=== PATIENT | female | born 1990 | race Caucasian/White ===

== ENCOUNTER 2017-06-07 22:50 | Outpatient (CLI) | payer BC ==
[2017-06-07 23:14] VITALS: BP 108/70; PULSE 79; RESP 16; TEMP 97.9
--- NOTE | 2017-06-23 07:43 | P.MSEPDOC ---
Presenting Problems - Arrival Data Date of Arrival on Unit: 06/07/17 Time of Arrival on Unit: 22:50 Mode of Transport: Wheelchair - Complaint OB-Reason for Admission/Chief Complaint: Possible Onset of Labor Comment: strong contx since 6pm Medical History - Information : 4 Para: 2 Term: 2 : 0 Abortions: Spontaneous or Elective: 1 Number of Living Children: 2 - Gestational Age Expected Date of Delivery: 06/28/17 Gestational Age by SOTO (wks/days): 39 Weeks and 2 Days - History Sexually Transmitted Diseases: HSV Review of Systems - Review of Systems Constitutional: No problems Breast: No problems ENT: No problems Cardiovascular: No problems Respiratory: No problems Gastrointestinal: No problems Genitourinary: No problems Musculoskeletal: No problems Neurological: No problems Skin: No problems Vital Signs - Temperature Temperature: 97.9 F Temperature Source: Oral - Pulse Right Sitting Brachial Pulse Rate: 79 Pulse Assessment Method: Automatic Cuff - Respirations Respiratory Rate: 16 Oxygen Delivery Method: Room Air - Blood Pressure Right Arm Sitting Blood Pressure: 108/70 Blood Pressure Mean: 82 Blood Pressure Source: Automatic Cuff Medical Screen Scoring (Pre) - Cervical Exam Dilation: 1-3 cm = 1 Membranes: Intact - Uterine Contractions Frequency: > or = 36 weeks =2 Duration: > 40 seconds = 2 - Maternal Vital Signs Maternal Temperature: N/A Maternal Blood Pressure: N/A Signs of Preeclampsia: N/A Maternal Respirations: N/A - Maternal Trauma Maternal Trauma: N/A - Assessment Heart Rate - NICHD Category: Category I (Normal) = 0 - Total Score Total Score (Pre): 5 - Level of Risk Level of Risk: Low (0-5) Physician Notification (Pre) - Physician Notified Physician Notified Date: 06/07/17 Physician Notified Time: 23:08 Physician/Practitioner Notifed:: dr fallon Spoke With: dr fallon New Order Received: Yes - Notification Comment Comment: dr fallon ordered to recheck cervix after one hour and if no cervical change and FHTs reactive, pt may be discharged home. Disposition - Disposition OB Disposition: Discharge to home Discharge Date: 06/08/17 Discharge Time: 00:10 I agree with the RN Medical Screening Exam: Yes Risk & Benefit of care provided described in d/c instruction: Yes Diagnosis: ECHO VIRUS MENINGITIS
== END 2017-06-08 00:10 | disposition home or self-care (01) ==
LOC: FBPOP 22:50
PROVIDERS: ATTEND Obstetrics & Gynecology
DX: O98.52 Other viral diseases complicating childbirth (principal); A87.0 Enteroviral meningitis; Z3A.39 39 weeks gestation of pregnancy
CPT/HCPCS: 59025; 99213

== ENCOUNTER 2017-06-14 09:03 | Inpatient (IN) | payer BC, OTHER ==
[2017-06-14] MEDS ORDERED: TERBUTALINE 1 MG/ML VIAL SQ PRN (09:32)
[2017-06-14] MEDS ORDERED: METHYLERGONOVINE 0.2 MG/ML 1 ML AMP IM PRN (09:32)
[2017-06-14] MEDS ORDERED: OXYTOCIN 10 UNIT/ML 1 ML VIAL IM PRN (09:32)
[2017-06-14] MEDS ORDERED: CARBOPROST TROMETHAMINE 250 MCG/ML 1 ML AMP IM PRN (09:32)
[2017-06-14] MEDS ORDERED: LIDOCAINE 1% (PF) 10 MG/ML (30 ML SDV) SQ PRN (09:32)
[2017-06-14] MEDS ORDERED: OXYTOCIN 20 UNITS/1000 ML NS 1,000 ML IV SCH ×2 (09:45→13:15)
[2017-06-14] MEDS: LACTATED RINGERS 1,000 ML IV SCH ×2 (09:47→12:44)
[2017-06-14 09:53] VITALS: RESP 16; BMI 31.4
[2017-06-14 09:58] LABS: Basophils % (A) 0 %; CH 31.5; CHCM 34.4; Eosinophils % (A) 0 %; HCT 43.3 % (34.0-46.0); HDW 2.81; HGB 14.3 gm/dL (11.4-16.0); Luc # (Auto) 0.09; Luc % (Auto) 1; Lymphocytes # (A) 1.3 k/uL (1.0-4.8); Lymphocytes % (A) 14 %; MCH 30.4 pg (25.0-35.0); MCV 91.9 fL (80.0-100.0); Monocytes # (A) 0.3 k/uL (0-1.0); Monocytes % (A) 3 %; Neutrophils # (A) 7.7 k/uL (1.3-7.7); Neutrophils % (A) 82 %; RBC 4.71 m/uL (3.80-5.40); RDW 14.5 % (11.5-15.5); WBC 9.5 k/uL (3.8-10.6); WBC (Perox) 8.88
[2017-06-14] MEDS ORDERED: fentaNYL (PF) 50 MCG/ML 5 ML AMP ONE (12:07)
[2017-06-14] MEDS ORDERED: SODIUM CHLORIDE 0.9% 100 ML BAG ONE (12:07)
[2017-06-14] MEDS ORDERED: BUPIVACAINE (PF) 0.25% 30 ML VIAL ONE (12:07)
[2017-06-14] MEDS ORDERED: BUPIVACAINE (PF) 0.25% 25 ML, fentaNYL (PF) 200 MCG in SODIUM CHLORIDE 0.9% 71 ML EPIDURAL ONE (12:43)
--- NOTE | 2017-06-14 13:01 | P.HPOB ---
History of Present Illness H&P Date: 06/14/17 Chief Complaint: Contractions Annmarie is a pleasant 27-year-old at 38 weeks, edc 06/28/2017, that presents with complaints of contractions she stated the contractions started earlier today and became regular every 2-3 minutes. She denies loss of fluid or vaginal bleeding. She notes good movement no blood work revealed a blood type of A+ she was rubella nonimmune and will receive a vaccine she is RPR nonreactive her hepatitis B surface Ag was negative along with her HIV Past Medical History Past Medical History: No Reported History Additional Past Medical History / Comment(s): IBS, HSV, anxiety, depression History of Any Multi-Drug Resistant Organisms: None Reported Past Surgical History: Cholecystectomy Additional Past Surgical History / Comment(s): Dilation and curettage Past Anesthesia/Blood Transfusion Reactions: Postoperative Nausea & Vomiting ( PONV) Past Psychological History: Anxiety, Depression Smoking Status: Never smoker Past Alcohol Use History: Occasional Past Drug Use History: None Reported - Past Family History Brother(s) Additional Family Medical History / Comment(s): CROHN'S Sister(s) Additional Family Medical History / Comment(s): COLITIS Mother Additional Family Medical History / Comment(s): DIVERTICULI Medications and Allergies Home Medications Medication Instructions Recorded Confirmed Type Pnv,Calcium 72/Iron/Folic Acid 1 tab PO DAILY 05/18/17 06/14/17 History [ Plus Tablet] Sertraline [Zoloft] 50 mg PO DAILY 06/07/17 06/14/17 History valACYclovir [Valtrex] 500 mg PO DAILY 06/07/17 06/14/17 History Allergies Allergy/AdvReac Type Severity Reaction Status Date / Time No Known Allergies Allergy Verified 06/14/17 09:11 Exam Osteopathic Statement: *. No significant issues noted on an osteopathic structural exam other than those noted in the History and Physical/Consult. - Vital Signs Vital signs: Vital Signs Temp Pulse Resp BP Pulse Ox 06/14/17 09:49 98.1 F 84 16 104/67 98 06/14/17 09:12 98.1 F 84 16 104/67 98 Intake and Output 06/13/17 06/14/17 06/14/17 22:59 06:59 14:59 Other: Weight 78.018 kg Patient Weight 06/15/17 06:59 Weight 78.018 kg - OBG Physical Exam Abdomen: Gravid and appropriate for gestational age Vulva: both: normal Cervix: Dilation per RN exam 5-6 cm on admission Uterus: Gravid Results Result Diagrams: 06/14/17 09:45 Assessment and Plan (1) Spontaneous onset of labor Status: Acute Plan: We will admit Linda with expectant management and plans for normal spontaneous vaginal delivery
[2017-06-14] MEDS ORDERED: diphenhydrAMINE 50 MG CAP PO PRN (13:05)
[2017-06-14] MEDS ORDERED: Acetaminophen-Codeine 300-30mg TAB PO PRN (13:05)
[2017-06-14] MEDS ORDERED: BENZOCAINE/MENTHOL SPRAY 1 GM/SPRAY AEROSOL TOPICAL PRN (13:05)
[2017-06-14] MEDS ORDERED: ACETAMINOPHEN TAB 325 MG TAB PO PRN (13:05)
[2017-06-14] MEDS ORDERED: LANOLIN CREAM 5 GM TUBE TOPICAL PRN (13:05)
[2017-06-14] MEDS ORDERED: SIMETHICONE 80 MG CHEWABLE PO PRN (13:05)
[2017-06-14] MEDS ORDERED: diphenhydrAMINE 50 MG/ML 1 ML VIAL IVP PRN ×2 (13:05)
[2017-06-14] MEDS ORDERED: WITCH HAZEL 1 EACH MED..PAD TOPICAL PRN (13:05)
[2017-06-14] MEDS ORDERED: MEASLES-MUMPS-RUBELLA VACC/PF 12,500 UNIT/0.5 ML VIAL SQ ONE (13:05)
[2017-06-14] MEDS ORDERED: ZOLPIDEM 5 MG TAB PO PRN (13:05)
[2017-06-14] MEDS ORDERED: HYDROCORTISONE 2.5% RECTAL CREAM 30 GM TUBE RECTAL PRN (13:05)
[2017-06-14] MEDS ORDERED: diphenhydrAMINE 25 MG CAP PO PRN (13:05)
--- NOTE | 2017-06-14 13:05 | P.PROBDLV ---
Vaginal Delivery Note - . Vaginal Delivery Note: Preoperative diagnosis intrauterine at 38-0/7 weeks, spontaneous labor Postoperative diagnosis same Procedure normal spontaneous vaginal delivery, artificial rupture of membranes , Pitocin augmentation of labor, repair of second-degree midline vaginal laceration Surgeon Rama Andrew D.OLeroy Anesthesia epidural, local with vaginal repair EBL 300 mL Findings male infant in OA presentation, delivered over intact perineum. At 1237, Apgars 9 and 9 at one and 5 minutes respectively. Placenta delivered spontaneously without difficulty intact Complications none
[2017-06-14] MEDS: IBUPROFEN 600 MG TAB PO PRN (13:19)
[2017-06-14] MEDS: SENNOSIDES-DOCUSATE SODIUM 1 EACH TAB PO SCH (20:34)
[2017-06-15] MEDS: IBUPROFEN 600 MG TAB PO PRN ×2 (01:39→08:50)
--- NOTE | 2017-06-15 08:14 | P.PNOBGVD ---
Subjective - Subjective Principal diagnosis: s/p Interval history: Tommy is a 27-year-old 012 that is status post normal spontaneous vaginal delivery on 06/14/2017. She is ambulatory and voiding without difficulty. She is tolerating a regular diet. She states her pain is controlled. Her lochia is moderate at this time. She denies any concerns Objective - Latest Vital Signs Latest vital signs: Vital Signs Temp Pulse Resp BP Pulse Ox 06/14/17 23:54 98.7 F 83 16 119/67 06/14/17 20:00 98.6 F 71 16 114/65 06/14/17 16:00 98.3 F 72 16 108/59 06/14/17 14:56 98.2 F 60 16 112/67 06/14/17 14:26 66 16 111/66 06/14/17 13:56 76 16 126/78 06/14/17 13:41 72 16 108/58 06/14/17 13:26 72 16 100/49 06/14/17 13:11 78 16 113/53 06/14/17 12:56 96.5 F L 97 16 123/60 06/14/17 09:49 98.1 F 84 16 104/67 98 06/14/17 09:12 98.1 F 84 16 104/67 98 Intake and Output 06/14/17 06/15/17 06/15/17 22:59 06:59 14:59 Other: # Voids 0 1 - Exam Extremities: Present: normal Abdomen: Present: normal appearance (Uterus firm below the umbilicus) Assessment and Plan (1) Spontaneous onset of labor Narrative/Plan: Post day #1 normal spontaneous vaginal delivery delivery doing well Anticipate discharge later this afternoon Current Visit: No Status: Acute Code(s): [id number] - SNOMED Code(s): 40891257
--- NOTE | 2017-06-15 08:19 | P.DS ---
Providers Date of admission: 06/14/17 09:21 Expected date of discharge: 06/15/17 Attending physician: Darian Givens Primary care physician: Stated None - Discharge Diagnosis(es) (1) Spontaneous onset of labor Annmarie is a very pleasant 27-year-old 013 that presented to labor and delivery on 89 with complaints of contractions. She was 5-6 cm at that time and is what was admitted with expectant management patient progressed throughout labor Pitocin augmentation was begun along with artificial rupture of membranes. Clear fluid was obtained. She had a normal spontaneous vaginal delivery of a viable male at 1237 Apgars of 9 and 9 at one and 5 minutes respectively. Weight 6 lbs. 13 oz. Her course is essentially benign and by day #1 she was ready for discharge home. Current Visit: No Status: Acute Hospital Course: course was essentially benign after normal spontaneous vaginal delivery. By day #1 she was ambulatory and voiding without difficulty, tolerating regular diet. Her pain was well controlled with oral medications. And she desired discharge home. Routine discharge instructions were given to this patient and she will follow up in 4-6 weeks at [facility]/ [employer] with Dr. Givens Procedures: Normal spontaneous vaginal delivery, Pitocin augmentation of labor, artificial rupture of membranes, repair of second-degree midline vaginal laceration Patient Condition at Discharge: Good Plan - Discharge Summary New Discharge Prescriptions: No Action Pnv,Calcium 72/Iron/Folic Acid [ Plus Tablet] 1 tab PO DAILY valACYclovir [Valtrex] 500 mg PO DAILY Sertraline [Zoloft] 50 mg PO DAILY Discharge Medication List Pnv,Calcium 72/Iron/Folic Acid [ Plus Tablet] 1 tab PO DAILY 05/18/17 [ History] Sertraline [Zoloft] 50 mg PO DAILY 06/07/17 [History] valACYclovir [Valtrex] 500 mg PO DAILY 06/07/17 [History] Follow up Appointment(s)/Referral(s): Darian Givens MD [STAFF PHYSICIAN] - 1 Week
[2017-06-15 08:25] LABS: Basophils % (A) 0 %; CH 31.2; CHCM 33.9; Eosinophils % (A) 0 %; HCT 38.2 % (34.0-46.0); HDW 2.71; HGB 12.7 gm/dL (11.4-16.0); Luc # (Auto) 0.08; Luc % (Auto) 1; Lymphocytes # (A) 1.3 k/uL (1.0-4.8); Lymphocytes % (A) 14 %; MCH 30.7 pg (25.0-35.0); MCHC 33.2 g/dL (31.0-37.0); MCV 92.4 fL (80.0-100.0); Mean Platelet Volume 9.8; Monocytes # (A) 0.3 k/uL (0-1.0); Monocytes % (A) 3 %; Neutrophils # (A) 7.6 k/uL (1.3-7.7); Neutrophils % (A) 82 %; RBC 4.14 m/uL (3.80-5.40); RDW 14.7 % (11.5-15.5); WBC 9.2 k/uL (3.8-10.6); WBC (Perox) 10.12
[2017-06-15 08:36] VITALS: BP 101/64; PULSE 57; TEMP 98.3
[2017-06-15] MEDS: SENNOSIDES-DOCUSATE SODIUM 1 EACH TAB PO SCH (08:40)
== END 2017-06-15 13:36 | disposition home or self-care (01) | DRG 775 ==
LOC: FBPOP 09:03 → 4FBP 09:21
PROVIDERS: ADMIT Obstetrics & Gynecology; ATTEND Obstetrics & Gynecology
PROC: 10E0XZZ Delivery of Products of Conception, External Approach (ICD-10-PCS; principal; 2017-06-14)
PROC: 0KQM0ZZ Repair Perineum Muscle, Open Approach (ICD-10-PCS; principal; 2017-06-14)
PROC: 3E0134Z Introduction of Serum, Toxoid and Vaccine into Subcutaneous Tissue, Percutaneous Approach (ICD-10-PCS; 2017-06-14)
PROC: 3E0R3CZ (ICD-10-PCS; 2017-06-14)
PROC: 00HU33Z Insertion of Infusion Device into Spinal Canal, Percutaneous Approach (ICD-10-PCS; 2017-06-14)
DX: O70.1 Second degree perineal laceration during delivery (principal); Z37.0 Single live birth; O99.344 Other mental disorders complicating childbirth; F32.9 Major depressive disorder, single episode, unspecified; O98.319 Other infections with a predominantly sexual mode of transmission complicating pregnancy, unspecified trimester; A60.00 Herpesviral infection of urogenital system, unspecified; O99.62 Diseases of the digestive system complicating childbirth; K58.9 Irritable bowel syndrome, unspecified; F41.9 Anxiety disorder, unspecified; Z23 Encounter for immunization; Z3A.38 38 weeks gestation of pregnancy; Z90.49 Acquired absence of other specified parts of digestive tract; Z79.899 Other long term (current) drug therapy
CPT/HCPCS: 59025; 85025; 88307; 90471; 90707; 99213